=== PATIENT | male | born 2000 | race Caucasian/White ===

== ENCOUNTER 2019-10-05 15:06 | Inpatient (IN) | payer OTHER ==
[~2019-10-05] VITALS: Ht 221 cm; Wt 102.6 kg
[2019-10-05 16:33] VITALS: BP 123/64; PULSE 85; TEMP 99.9
--- NOTE | 2019-10-05 18:30 | NUR ---
Patients admission assessment completed. He stated his pain is about 4-5 but did not want pain medications. NO complaints of nausea. Patient has been mostly sleeping since arriving to the unit. No other changes at this time. Call light within reach.
[2019-10-05 21:20] VITALS: BP 111/59; PULSE 97; TEMP 99.5
[2019-10-06 02:31] VITALS: BP 115/56; PULSE 99; TEMP 98.2
[2019-10-06 04:15] VITALS: BP 117/60; PULSE 98; TEMP 98.1
--- NOTE | 2019-10-06 05:00 | NUR ---
RESTING QUIETLY. PT REPORTED HAVING A HEADACHE. TYLENOL FOR PAIN. NO LOOSE STOOLS REPORTED BY PT.
[2019-10-06 06:57] LABS: HEMATOCRIT 45.7 % (42.0-52.0); HEMOGLOBIN 15.9 g/dl (13.5-18.0); MEAN CELL VOLUME 88 fl (80.0-100.0); MEAN CORPUSCULAR HEMOGLOBIN 31 pg (27.0-31.0); MEAN CORPUSCULAR HGB CONC 35 g/dl (33.0-37.0); MEAN PLATELET VOLUME 10.8 fl (7.4-10.4); PLATELET COUNT 156 K/mm3 (130-400); RED BLOOD COUNT 5.19 M/mm3 (4.20-5.60); REDCELL DISTRIBUTION WIDTH-CV 12.5 % (11.5-14.5)
[2019-10-06 07:15] LABS: CALCIUM 9.5 mg/dL (8.4-10.2); CREATININE, serum 1.08 (0.66-1.25); POTASSIUM 3.7 mmol/L (3.4-5.0)
[2019-10-06 07:53] LABS: LYMPHOCYTE 11 % (20.0-51.0); NEUTROPHILS 83 % (42.0-75.2)
[2019-10-06 07:54] LABS: PLATELET ESTIMATE NORMAL (NORMAL)
[2019-10-06 08:04] VITALS: BP 119/61; PULSE 89; TEMP 98.6
--- NOTE | 2019-10-06 09:58 | NUR ---
Patient alert and oriented, answers questions appropriately. See assessment. Abdomen soft, non distended. Bowel sounds audible x4 quads. +Flatus. +Bowel movement through the night. Tenderness with guarding noted to LLQ/LUQ. Patient states feels warm, skin clammy, gown wet with perspiration. C/o abdominal pain /, refuses pain medication. No other c/o at this time.
--- NOTE | 2019-10-06 11:01 | NUR ---
Dr Kim here to see patient.
[2019-10-06 11:26] VITALS: BP 134/82; PULSE 89; TEMP 98.4
[2019-10-06 16:39] VITALS: BP 132/70; PULSE 94; TEMP 98.4
--- NOTE | 2019-10-06 20:00 | NUR ---
Report received. 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 Assessment complete. VS stable. A&Ox3. Denies pain/nausea/shortness of breath. +flatus. States she is exhausted today from being up the last two in pain. IV to left AC infusing NS@100ml/hr. Plan of care discussed for this shift to include antibiotics/pain meds as needed. Verbalizes understanding. Call light in reach. Will monitor.
[2019-10-06 21:40] VITALS: BP 129/70; PULSE 95; TEMP 99.9
[2019-10-07 01:09] VITALS: BP 131/78; PULSE 93; TEMP 99.1
--- NOTE | 2019-10-07 05:00 | NUR ---
Called to nurses station with C/O IV site leaking. DCd at this time-cath intact. New IV placed in left AC-20g. Tolerated well. Denies pain/nausea/shortness of breath. States she did have one medium size liquid-lance in color stool this shift. Call light in reach. Will monitor.
[2019-10-07 05:03] VITALS: BP 126/71; PULSE 91; TEMP 98.8
[2019-10-07 06:36] LABS: HEMOGLOBIN 15.4 g/dl (13.5-18.0); MEAN CELL VOLUME 89 fl (80.0-100.0); MEAN CORPUSCULAR HEMOGLOBIN 30 pg (27.0-31.0); MEAN CORPUSCULAR HGB CONC 34 g/dl (33.0-37.0); MEAN PLATELET VOLUME 10.9 fl (7.4-10.4); PLATELET COUNT 154 K/mm3 (130-400); RED BLOOD COUNT 5.06 M/mm3 (4.20-5.60); REDCELL DISTRIBUTION WIDTH-CV 12.5 % (11.5-14.5)
[2019-10-07 06:59] LABS: CALCIUM 9.5 mg/dL (8.4-10.2); CREATININE, serum 0.94 (0.66-1.25); POTASSIUM 3.7 mmol/L (3.4-5.0)
[2019-10-07 08:13] VITALS: BP 122/71; PULSE 91; TEMP 98.8
--- NOTE | 2019-10-07 09:00 | NUR ---
Patient alert and oriented, answers questions appropriately. See assessment. Abdomen soft, non distended. C/o mild pain to RLQ/LLQ palpation. +Flatus. Reports several liquid stools through the night. No other c/o at this time.
[2019-10-07 11:55] VITALS: BP 131/76; PULSE 94; TEMP 99.9
--- NOTE | 2019-10-07 12:32 | NUR ---
Dr Esparza here to see patient.
--- NOTE | 2019-10-07 14:05 | NUR ---
ZULEMA met with the patient to discuss discharge plan. The patient lives on [address] in the [facility]. 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 The patient receives primary care at [facility] and he receives his medications at the [facility]. He reports no difficulties obtaining his meds. The patient does not have advanced directives completed. He states that his next of kin is his parents: Dejah Sheldon and Ugo Denice (ph#[phone]). The patient plans to return back home to the [facility] upon discharge. No additional needs at this time.
[2019-10-07 17:19] VITALS: BP 129/74; PULSE 92; TEMP 100.1
[2019-10-07 19:49] VITALS: BP 123/64; PULSE 83; TEMP 98.5
--- NOTE | 2019-10-07 20:24 | NUR ---
Pt. sitting up in bed at this time. Pt. is A&OX3, assessment complete. IV to lt. ac patent, IV fluids infusing per orders. Pt. reports mild pain at a 3, Tylenol given. Pt. denies further needs, call light within reach.
[2019-10-08 04:31] VITALS: BP 118/50; PULSE 72; TEMP 98.6
[2019-10-08 06:37] LABS: BASO % 0.1 % (0.0-2.0); EOS # 0.1 (0.0-0.7); EOS % 0.7 % (0-4.0); GRAN # 10.7 (1.4-6.5); GRAN % 80.2 % (42.2-75.2); HEMATOCRIT 42.5 % (42.0-52.0); HEMOGLOBIN 14.8 g/dl (13.5-18.0); LYMPH # 1.2 (1.2-3.4); LYMPH % 8.8 % (20.0-51.0); MEAN CELL VOLUME 89 fl (80.0-100.0); MEAN CORPUSCULAR HEMOGLOBIN 31 pg (27.0-31.0); MEAN CORPUSCULAR HGB CONC 35 g/dl (33.0-37.0); MEAN PLATELET VOLUME 10.9 fl (7.4-10.4); MONO # 1.3 (0.1-0.6); MONO % 9.8 % (1.7-9.3); PLATELET COUNT 157 K/mm3 (130-400); RED BLOOD COUNT 4.79 M/mm3 (4.20-5.60); REDCELL DISTRIBUTION WIDTH-CV 12.6 % (11.5-14.5)
[2019-10-08 06:49] LABS: ALBUMIN 3.9 gm/dL (3.5-5.0); BILIRUBIN,TOTAL 0.8 mg/dL (0.0-1.0); CALCIUM 9.2 mg/dL (8.4-10.2); CREATININE, serum 0.92 (0.66-1.25); POTASSIUM 3.4 mmol/L (3.4-5.0); TOTAL PROTEIN 7.4 gm/dL (6.4-8.2)
[2019-10-08 07:51] VITALS: BP 132/74; PULSE 87; TEMP 99
--- NOTE | 2019-10-08 08:00 | NUR ---
Patient resting in bed at this time. Patient is alert and oriented answers questions appropriately. Patient denies pain or further needs, call light within reach.
[2019-10-08 09:47] VITALS: BP 124/70
[2019-10-08] MEDS ORDERED: AMOXICILLIN 8751 TAB PO (10:32)
[2019-10-08] MEDS ORDERED: NORCO 325 MG-51 TAB PO (10:33)
[2019-10-08 11:29] VITALS: BP 131/70; PULSE 93; TEMP 99.5
--- NOTE | 2019-10-08 11:36 | NUR ---
First visit from the family medicine physician assistant. No needs right now.
--- NOTE | 2019-10-08 16:40 | NUR ---
Discharge teaching completed. Discussed follow up appointments, discharge medications, and discharge instructions. Patient verbalized understanding and denied questions. Patient had removed INT himself, hemostasis had been achieved. Patient was escorted to ED entrance, where he entered a private vehicle.
== END 2019-10-08 16:40 | disposition home or self-care (01) | DRG 392 ==
LOC: JCC 16:08
PROVIDERS: Surgery; ADMIT Surgery
DX: K57.20 Diverticulitis of large intestine with perforation and abscess without bleeding (principal)
CPT/HCPCS: OP; G0378; J1170; J2543; J7030; J7120